=== PATIENT | male | born 1940 | race Hispanic/Latino ===

== ENCOUNTER 2017-08-24 11:07 | Emergency (ER) | payer OTHER ==
[~2017-08-24 11:07] MED LIST: ATOR10 PO; BACL10TA PO; FINA5TAB41 PO; GABA-531 PO; METF500T PO; PANT40TA PO; TAMS0.4C32 PO; VALS80TA29 PO
[2017-08-24] MEDS ORDERED: BENZONATATE 100 MG CAPSULE PO ONE (11:51)
[2017-08-24] MEDS ORDERED: IPRATROPIUM/ALBUTEROL SULFATE 3 ML SOLUTION IH ONE (11:56)
== END 2017-08-24 13:49 | disposition home or self-care (01) ==
LOC: EDH 11:07
DX: J20.9 Acute bronchitis, unspecified (principal); J45.909 Unspecified asthma, uncomplicated; E11.9 Type 2 diabetes mellitus without complications; I10 Essential (primary) hypertension
CPT/HCPCS: 71046; 87804; 94640

== ENCOUNTER 2020-07-18 17:02 | Inpatient (IN) | payer OTHER ==
[~2020-07-18] VITALS: Ht 172.7 cm; Wt 98.9 kg
[~2020-07-18 17:02] MED LIST changes: -VALS80TA29 PO; +VALS80TA30 PO
[2020-07-18 18:02] LABS: BASOPHILS % (AUTO) 0.2 % (0.0-5.0); EOSINOPHILS % (AUTO) 0.2 % (0.0-8.0); HEMATOCRIT 39.9 % (42-54); LYMPHOCYTES % (AUTO) 12.2 % (21.0-51.0); MEAN CORPUSCULAR HEMOGLOBIN 28.8 pg (27.0-33.0); MEAN CORPUSCULAR HGB CONC 33.1 g/dL (32.0-36.0); MEAN CORPUSCULAR VOLUME 87.1 fL (79-99); NEUTROPHILS % (AUTO) 72.1 % (40.0-77.0); PLATELET COUNT (AUTO) 162 K/uL (130-400); RED BLOOD CELL COUNT(AUTO) 4.58 MIL/uL (4.50-6.20); RED CELL DISTRIBUTION WIDTH 13.3 % (11.0-15.5); WHITE BLOOD COUNT (AUTO) 9.2 K/uL (4.8-10.8)
[2020-07-18 18:10] LABS: INR 1.02 (0.85-1.15); PROTHROMBIN TIME 10.9 SEC (9.6-11.6)
[2020-07-18 18:11] LABS: PARTIAL THROMBOPLASTIN TIME 24.8 SEC (26.3-35.5)
[2020-07-18 18:20] LABS: CARBON DIOXIDE 22 mmol/L (21-32); CHLORIDE 102 mmol/L (101-111); CREATININE 1.9 mg/dL (0.5-1.5); GLOMERULAR FILTR. RATE CALC 37 mL/min (>60); GLUCOSE,RANDOM 149 mg/dL (70-105); SODIUM SERUM 138 mmol/L (136-145); UREA NITROGEN, BLOOD 34 mg/dL (7-18)
[2020-07-18 18:33] LABS: ALANINE AMINOTRANSFERASE 54 U/L (12-78); ALBUMIN 2.7 g/dL (3.5-5.0); ASPARTATE AMINOTRANSFERASE 26 U/L (10-37); BILIRUBIN,TOTAL 0.7 mg/dL (0.2-1.0); CREATINE KINASE, TOTAL 19 U/L (21-232); LACTATE DEHYDROGENASE 152 U/L (81-234); MYOGLOBIN 43 ng/mL (10-92); TOTAL PROTEIN, SERUM 6.1 g/dL (6.0-8.3); TROPONIN I < 0.04 ng/mL (0.00-0.06)
[2020-07-18 19:34] LABS: ERYTHROCYTE SEDIMENTATION RATE 30 MM/HR (0-20)
[2020-07-18] MEDS ORDERED: IOHEXOL 350 MG/ML 100ML INFUS..BTL IV ONE (20:08)
[2020-07-18 20:52] LABS: APPEARANCE,URINE SL CLOUDY (CLEAR); BILIRUBIN,URINE NEGATIVE (NEGATIVE); COLOR,URINE YELLOW (YELLOW); GLUCOSE, URINE (UA) NEGATIVE (NEGATIVE); KETONES,URINE NEGATIVE (NEGATIVE); LEUKOCYTE ESTERASE ,URINE MODERATE (NEGATIVE); NITRATE,URINE POSITIVE (NEGATIVE); OCCULT BLOOD,URINE MODERATE (NEGATIVE); PH,URINE 5.5 (5.0-8.0); PROTEIN,URINE 30 mg/dL (NEGATIVE); UROBILINOGEN,URINE 0.2 mg/dL (0.2-1.0)
[2020-07-18 21:08] LABS: BACTERIA,URINE Moderate /HPF (None Seen); SQUAMOUS EPITHELIAL CELL,UR Few /HPF (0-2); WBC,URINE 26-50 /HPF (0-1)
[2020-07-19 08:48] VITALS: BP 148/68
[2020-07-19 12:06] VITALS: BP 159/71
[2020-07-19 12:06] LABS: HEMATOCRIT 38.5 % (42-54); MEAN CORPUSCULAR HEMOGLOBIN 28.5 pg (27.0-33.0); MEAN CORPUSCULAR HGB CONC 32.5 g/dL (32.0-36.0); MEAN CORPUSCULAR VOLUME 87.9 fL (79-99); RED BLOOD CELL COUNT(AUTO) 4.38 MIL/uL (4.50-6.20); RED CELL DISTRIBUTION WIDTH 13.3 % (11.0-15.5); WHITE BLOOD COUNT (AUTO) 8.6 K/uL (4.8-10.8)
[2020-07-19 12:17] LABS: CREATININE 1.8 mg/dL (0.5-1.5); MAGNESIUM 2.1 mg/dL (1.80-2.40); POTASSIUM 4.2 mmol/L (3.5-5.1)
[2020-07-19] MEDS ORDERED: SITA100T12 PO (12:29)
[2020-07-19] MEDS ORDERED: VALS160T29 PO (12:29)
[2020-07-19] MEDS ORDERED: FINA5TAB41 PO (12:29)
[2020-07-19] MEDS ORDERED: BENZ-51 PO (12:29)
[2020-07-19] MEDS ORDERED: ATOR10TA69 PO (12:29)
[2020-07-19] MEDS ORDERED: METO-408 PO (12:29)
[2020-07-19] MEDS ORDERED: TAMS-1 PO (12:29)
[2020-07-19] MEDS ORDERED: MELO-106 PO (12:29)
[2020-07-19 16:00] VITALS: BP 110/70
[2020-07-19] MEDS ORDERED: PERFLUTREN PROTEIN-A MICROSPHR 0.22 MG/ML VIAL IV ONE (16:04)
[2020-07-19 16:55] VITALS: BP 170/88
[2020-07-19 20:07] VITALS: BP 156/70
[2020-07-19] MEDS ORDERED: METF-446 PO (21:17)
[2020-07-19 23:45] VITALS: BP 173/59
[2020-07-20 04:01] VITALS: BP 169/59
[2020-07-20 05:28] LABS: HEMATOCRIT 41.6 % (42-54); MEAN CORPUSCULAR VOLUME 87.6 fL (79-99); RED BLOOD CELL COUNT(AUTO) 4.75 MIL/uL (4.50-6.20); RED CELL DISTRIBUTION WIDTH 13.2 % (11.0-15.5); WHITE BLOOD COUNT (AUTO) 9.5 K/uL (4.8-10.8)
[2020-07-20 05:32] LABS: HEMOGLOBIN A1C 8.2 % (4.0-6.0)
[2020-07-20 05:42] LABS: ALBUMIN 2.6 g/dL (3.5-5.0); BILIRUBIN,TOTAL 1.3 mg/dL (0.2-1.0); CREATININE 1.8 mg/dL (0.5-1.5); POTASSIUM 3.9 mmol/L (3.5-5.1); TOTAL PROTEIN, SERUM 6.2 g/dL (6.0-8.3)
[2020-07-20] MEDS: INSULIN HUMULIN R 100 UNIT/ML 3ML SQ SCH ×2 (07:05→15:43)
[2020-07-20 08:00] VITALS: BP 160/73
[2020-07-20] MEDS: CEFTRIAXONE SODIUM 1 GM IVP SCH (09:31)
[2020-07-20] MEDS ORDERED: MECLIZINE HCL 12.5 MG TABLET PO PRN (09:45)
[2020-07-20 11:00] VITALS: BP 146/75
[2020-07-20 15:23] VITALS: BP 182/83
[2020-07-20 19:59] VITALS: BP 165/78
[2020-07-20] MEDS: TAMSULOSIN HCL 0.4 MG CAP.ER.24H PO SCH (20:46)
[2020-07-20 23:15] VITALS: BP 159/77
[2020-07-21 03:47] VITALS: BP 168/59
[2020-07-21 04:18] LABS: HEMATOCRIT 37.9 % (42-54); MEAN CORPUSCULAR HEMOGLOBIN 28.5 pg (27.0-33.0); MEAN CORPUSCULAR VOLUME 86.5 fL (79-99); RED BLOOD CELL COUNT(AUTO) 4.38 MIL/uL (4.50-6.20); RED CELL DISTRIBUTION WIDTH 12.9 % (11.0-15.5); WHITE BLOOD COUNT (AUTO) 8.2 K/uL (4.8-10.8)
[2020-07-21 04:44] LABS: ALBUMIN 2.3 g/dL (3.5-5.0); BILIRUBIN,TOTAL 0.9 mg/dL (0.2-1.0); CREATININE 1.8 mg/dL (0.5-1.5); POTASSIUM 3.6 mmol/L (3.5-5.1)
[2020-07-21] MEDS: CEFTRIAXONE SODIUM 1 GM IVP SCH ×2 (08:00→08:32)
[2020-07-21] MEDS: INSULIN HUMULIN R 100 UNIT/ML 3ML SQ SCH (08:00)
[2020-07-21 08:05] VITALS: BP 160/59
[2020-07-21] MEDS: TAMSULOSIN HCL 0.4 MG CAP.ER.24H PO SCH (08:32)
[2020-07-21] MEDS ORDERED: FINASTERIDE 5 MG TABLET PO SCH (09:00)
[2020-07-21] MEDS ORDERED: LOSARTAN 100 MG TABLET PO SCH (09:00)
[2020-07-21] MEDS ORDERED: SODIUM CHLORIDE 0.9% 1000ML 1,000 ML IV SCH (09:00)
[2020-07-21] MEDS ORDERED: METOPROLOL SUCCINATE 50 MG TAB.SR.24H PO SCH (09:00)
[2020-07-21] MEDS ORDERED: ATORVASTATIN CALCIUM 10 MG TABLET PO SCH (09:00)
== END 2020-07-21 15:55 | disposition home or self-care (01) | DRG 683 ==
LOC: EDH 17:02 → EDHIP 23:15 → 4BH 07-19 08:20
PROVIDERS: ADMIT Internal Medicine; ATTEND Internal Medicine
DX: N17.9 Acute kidney failure, unspecified (principal); N39.0 Urinary tract infection, site not specified; H81.399 Other peripheral vertigo, unspecified ear; E86.0 Dehydration; M48.061 Spinal stenosis, lumbar region without neurogenic claudication; E11.9 Type 2 diabetes mellitus without complications; I10 Essential (primary) hypertension; G89.29 Other chronic pain; M54.5 Low back pain; R26.2 Difficulty in walking, not elsewhere classified; Z20.828 Contact with and (suspected) exposure to other viral communicable diseases; Z87.828 Personal history of other (healed) physical injury and trauma
CPT/HCPCS: 36415; 70450; 70551; 71045; 72131; 72148; 74174; 80048; 80053; 80061; 81001; 82550; 82728; 82948; 83036; 83605; 83615; 83735; 83874; 84145; 84484; 85025; 85027; 85378; 85610; 85651; 85730; 86140; 86900; 86901; 87040; 87077; 87088; 87186; 87426; 87804; 92522; 92610; 93005; 93356; 93880; 97039; C8929; G0378; J0696; Q9967; U0003

== ENCOUNTER 2021-09-04 12:49 | Observation (INO) | payer OTHER ==
[~2021-09-04] VITALS: Ht 172.7 cm; Wt 94.3 kg
[~2021-09-04 12:49] MED LIST changes: -ATOR10 PO; +ATOR10TA69 PO; -BACL10TA PO; +BENZ-70 PO; -GABA-531 PO; +MELO-106 PO; +METF-446 PO; -METF500T PO; +METO-408 PO; -PANT40TA PO; +SITA100T12 PO; +TAMS-1 PO; -TAMS0.4C32 PO; +VALS160T29 PO; -VALS80TA30 PO
[2021-09-04] MEDS ORDERED: LACTULOSE 20 GM/30 ML UDCUP PO PRN (13:30)
[2021-09-04] MEDS ORDERED: ONDANSETRON 4MG INJ IVP PRN (13:30)
[2021-09-04] MEDS ORDERED: ZOLPIDEM TARTRATE 5 MG TAB PO PRN (13:30)
[2021-09-04] MEDS ORDERED: MORPHINE 4 MG SYG IVP PRN (13:30)
[2021-09-04 14:04] LABS: BASOPHILS % (AUTO) 0.6 % (0.0-5.0); EOSINOPHILS % (AUTO) 1.9 % (0.0-8.0); LYMPHOCYTES % (AUTO) 23.6 % (21.0-51.0); MEAN CORPUSCULAR HEMOGLOBIN 28.6 pg (27.0-33.0); MEAN CORPUSCULAR HGB CONC 31.6 g/dL (32.0-36.0); MEAN CORPUSCULAR VOLUME 90.5 fL (79-99); MONOCYTES % (AUTO) 10.4 % (3.0-13.0); NEUTROPHILS % (AUTO) 63.1 % (40.0-77.0); PLATELET COUNT (AUTO) 209 K/uL (130-400); RED BLOOD CELL COUNT(AUTO) 4.75 MIL/uL (4.50-6.20); RED CELL DISTRIBUTION WIDTH 12.5 % (11.0-15.5); WHITE BLOOD COUNT (AUTO) 8.4 K/uL (4.8-10.8)
[2021-09-04 14:18] LABS: CREATININE 1.5 mg/dL (0.5-1.5); POTASSIUM 4.4 mmol/L (3.5-5.1)
[2021-09-04 14:33] LABS: ALBUMIN 3.9 g/dL (3.5-5.0); BILIRUBIN,DIRECT 0.1 mg/dL (0.0-0.3); BILIRUBIN,TOTAL 0.6 mg/dL (0.2-1.0); TOTAL PROTEIN, SERUM 6.7 g/dL (6.0-8.3)
[2021-09-04] MEDS ORDERED: IOHEXOL-350 75 ML VIAL IV ONE (15:40)
[2021-09-04 20:22] VITALS: BP 126/60
[2021-09-04] MEDS: MAG/ALUM/SIMETH 30 ML UDCUP PO PRN (21:33)
[2021-09-05 00:20] VITALS: BP 156/61
[2021-09-05] MEDS ORDERED: VALS160T29 PO (00:21)
[2021-09-05] MEDS ORDERED: FINA5TAB41 PO (00:21)
[2021-09-05] MEDS ORDERED: DULA0.75 SQ (00:21)
[2021-09-05] MEDS ORDERED: SITA100T12 PO (00:21)
[2021-09-05] MEDS ORDERED: PANT40TA55 PO (00:21)
[2021-09-05] MEDS ORDERED: MONT10TA21 PO (00:21)
[2021-09-05] MEDS ORDERED: FLUT1BLS3 IH (00:21)
[2021-09-05] MEDS ORDERED: BACL10TA PO (00:21)
[2021-09-05] MEDS ORDERED: METR-172 PO (00:21)
[2021-09-05] MEDS ORDERED: METF-446 PO (00:21)
[2021-09-05] MEDS ORDERED: IPRA3AMP24 IH (00:21)
[2021-09-05] MEDS ORDERED: ATOR10TA69 PO (00:21)
[2021-09-05] MEDS ORDERED: MUPI22O TP (00:21)
[2021-09-05] MEDS ORDERED: TAMS-1 PO (00:21)
[2021-09-05] MEDS ORDERED: DICL20GE TP (00:21)
[2021-09-05] MEDS ORDERED: IPRATROPIUM/ALBUTEROL SULFATE 3 ML SOLUTION IH PRN (01:00)
[2021-09-05 04:24] VITALS: BP 157/73
[2021-09-05 06:35] LABS: BASOPHILS % (AUTO) 0.9 % (0.0-5.0); HEMATOCRIT 37.5 % (42-54); MEAN CORPUSCULAR HEMOGLOBIN 28.9 pg (27.0-33.0); MEAN CORPUSCULAR HGB CONC 31.7 g/dL (32.0-36.0); MONOCYTES % (AUTO) 12.6 % (3.0-13.0); NEUTROPHILS % (AUTO) 56.2 % (40.0-77.0); PLATELET COUNT (AUTO) 167 K/uL (130-400); RED BLOOD CELL COUNT(AUTO) 4.12 MIL/uL (4.50-6.20); RED CELL DISTRIBUTION WIDTH 12.6 % (11.0-15.5)
[2021-09-05 06:46] LABS: ALBUMIN 3.3 g/dL (3.5-5.0); BILIRUBIN,DIRECT 0.2 mg/dL (0.0-0.3); BILIRUBIN,TOTAL 0.7 mg/dL (0.2-1.0); CREATININE 1.5 mg/dL (0.5-1.5); POTASSIUM 3.6 mmol/L (3.5-5.1); TOTAL PROTEIN, SERUM 5.8 g/dL (6.0-8.3)
[2021-09-05 07:30] VITALS: BP 165/57
[2021-09-05] MEDS: **HM**TRELEGY ELLIPTA IH SCH (09:00)
[2021-09-05] MEDS ORDERED: **HM** TRULICITY 0.75MG SQ SCH (09:00)
[2021-09-05] MEDS: ENOXAPARIN SODIUM 40 MG/0.4 ML SYRINGE SQ SCH (09:32)
[2021-09-05] MEDS: TROLAMINE SALICYLATE CREAM 85 GM TUBE TP SCH ×2 (09:33→21:18)
[2021-09-05] MEDS: FINASTERIDE 5 MG TABLET PO SCH (09:33)
[2021-09-05] MEDS: MONTELUKAST SODIUM 10 MG TAB PO SCH (09:33)
[2021-09-05] MEDS: LINAGLIPTIN 5 MG TABLET PO SCH (09:33)
[2021-09-05] MEDS: LOSARTAN 100 MG TABLET PO SCH (09:33)
[2021-09-05] MEDS: TAMSULOSIN HCL 0.4 MG CAP.ER.24H PO SCH ×2 (09:33→21:18)
[2021-09-05] MEDS: PANTOPRAZOLE 40 MG/VIAL IVP SCH (09:47)
[2021-09-05] MEDS ORDERED: GADOTERATE MEGLUMINE 10 MMOL/20 ML VIAL IV ONE (10:28)
[2021-09-05 11:00] VITALS: BP 173/73
[2021-09-05 16:00] VITALS: BP 132/57
[2021-09-05 20:12] VITALS: BP 144/70
[2021-09-05] MEDS ORDERED: BACLOFEN 10 MG TABLET PO SCH (21:00)
[2021-09-05] MEDS ORDERED: ATORVASTATIN 10 MG TABLET PO SCH (21:00)
[2021-09-05] MEDS: MAG/ALUM/SIMETH 30 ML UDCUP PO PRN (21:20)
[2021-09-06] VITALS (25 sets, daily range): BP systolic 132–188; BP diastolic 61–93
[2021-09-06 07:45] LABS: BASOPHILS % (AUTO) 0.5 % (0.0-5.0); EOSINOPHILS % (AUTO) 2.6 % (0.0-8.0); HEMATOCRIT 41.2 % (42-54); LYMPHOCYTES % (AUTO) 27.2 % (21.0-51.0); MEAN CORPUSCULAR HEMOGLOBIN 28.4 pg (27.0-33.0); MEAN CORPUSCULAR HGB CONC 31.1 g/dL (32.0-36.0); MEAN CORPUSCULAR VOLUME 91.6 fL (79-99); MONOCYTES % (AUTO) 11.4 % (3.0-13.0); PLATELET COUNT (AUTO) 170 K/uL (130-400); RED CELL DISTRIBUTION WIDTH 12.4 % (11.0-15.5); WHITE BLOOD COUNT (AUTO) 7.7 K/uL (4.8-10.8)
[2021-09-06 07:59] LABS: ALBUMIN 3.5 g/dL (3.5-5.0); BILIRUBIN,TOTAL 0.8 mg/dL (0.2-1.0); CREATININE 1.4 mg/dL (0.5-1.5); POTASSIUM 3.9 mmol/L (3.5-5.1); TOTAL PROTEIN, SERUM 6.4 g/dL (6.0-8.3)
[2021-09-06] MEDS: MONTELUKAST SODIUM 10 MG TAB PO SCH (09:00)
[2021-09-06] MEDS: LOSARTAN 100 MG TABLET PO SCH ×2 (09:00→16:47)
[2021-09-06] MEDS: **HM**TRELEGY ELLIPTA IH SCH (09:00)
[2021-09-06] MEDS: LINAGLIPTIN 5 MG TABLET PO SCH (09:00)
[2021-09-06] MEDS: ENOXAPARIN SODIUM 40 MG/0.4 ML SYRINGE SQ SCH (09:00)
[2021-09-06] MEDS: FINASTERIDE 5 MG TABLET PO SCH (09:00)
[2021-09-06] MEDS: TAMSULOSIN HCL 0.4 MG CAP.ER.24H PO SCH (09:00)
[2021-09-06] MEDS: PANTOPRAZOLE 40 MG/VIAL IVP SCH (09:00)
[2021-09-06] MEDS: TROLAMINE SALICYLATE CREAM 85 GM TUBE TP SCH (09:00)
[2021-09-06] MEDS ORDERED: LIDOCAINE HCL 400MG/20ML VIAL ONE (12:58)
[2021-09-06] MEDS ORDERED: PROPOFOL 10 MG/ML 20ML VIAL IV ONE (12:58)
== END 2021-09-06 20:25 | disposition home or self-care (01) ==
LOC: EDH 12:49 → 3DH 20:20
PROVIDERS: ADMIT Internal Medicine; ATTEND Internal Medicine
DX: K29.70 Gastritis, unspecified, without bleeding (principal); R10.84 Generalized abdominal pain; R10.13 Epigastric pain; R11.2 Nausea with vomiting, unspecified; E78.5 Hyperlipidemia, unspecified; K21.9 Gastro-esophageal reflux disease without esophagitis; J44.9 Chronic obstructive pulmonary disease, unspecified; E66.01 Morbid (severe) obesity due to excess calories; I12.9 Hypertensive chronic kidney disease with stage 1 through stage 4 chronic kidney disease, or unspecified chronic kidney disease; E11.22 Type 2 diabetes mellitus with diabetic chronic kidney disease; N18.9 Chronic kidney disease, unspecified; D18.03 Hemangioma of intra-abdominal structures; K76.9 Liver disease, unspecified
CPT/HCPCS: 36415 ×3; 43239; 74177; 74183; 80048; 80053 ×2; 80061; 80076 ×2; 82948 ×7; 83690; 85025 ×3; 94664; A4215; A4222; A4223; A4606; A4620; A9575; C9113; G0378 ×48; J1650 ×2; J2270; J2405; J2704; J3490; J7030; Q9967; 96372; 96374; 96375

== ENCOUNTER 2021-10-04 11:03 | Observation (INO) | payer OTHER ==
[~2021-10-04] VITALS: Ht 172.7 cm; Wt 94.4 kg
[~2021-10-04 11:03] MED LIST changes: +BACL10TA PO; -BENZ-70 PO; +DICL20GE TP; +DULA0.75 SQ; +FLUT1BLS3 IH; +IPRA3AMP24 IH; -MELO-106 PO; -METF-446 PO; -METO-408 PO; +MONT10TA21 PO
[2021-10-04] MEDS ORDERED: PANTOPRAZOLE 40 MG/VIAL IVP ONE (12:00)
[2021-10-04] MEDS ORDERED: PANTOPRAZOLE 40 MG/VIAL ONE (12:02)
[2021-10-04 12:08] LABS: BASOPHILS % (AUTO) 0.3 % (0.0-5.0); HEMATOCRIT 36.8 % (42-54); LYMPHOCYTES % (AUTO) 17.8 % (21.0-51.0); MEAN CORPUSCULAR HEMOGLOBIN 28.9 pg (27.0-33.0); MEAN CORPUSCULAR HGB CONC 32.1 g/dL (32.0-36.0); NEUTROPHILS % (AUTO) 71.6 % (40.0-77.0); PLATELET COUNT (AUTO) 152 K/uL (130-400); RED BLOOD CELL COUNT(AUTO) 4.09 MIL/uL (4.50-6.20); RED CELL DISTRIBUTION WIDTH 12.4 % (11.0-15.5); WHITE BLOOD COUNT (AUTO) 7.6 K/uL (4.8-10.8)
[2021-10-04 12:16] LABS: CREATININE 1.6 mg/dL (0.5-1.5)
[2021-10-04 12:24] LABS: ALBUMIN 3.3 g/dL (3.5-5.0); BILIRUBIN,TOTAL 0.5 mg/dL (0.2-1.0); TOTAL PROTEIN, SERUM 5.6 g/dL (6.0-8.3)
[2021-10-04] MEDS ORDERED: MAG/ALUM/SIMETH 30 ML UDCUP PO ONE (13:00)
[2021-10-04] MEDS ORDERED: DICYCLOMINE HCL 10 MG/5 ML ML PO ONE (13:00)
[2021-10-04] MEDS ORDERED: LIDOCAINE HCL 2% VISCOUS 15 ML UDCUP PO ONE (13:00)
[2021-10-04 13:48] LABS: APPEARANCE,URINE SL CLOUDY (CLEAR); BILIRUBIN,URINE NEGATIVE (NEGATIVE); COLOR,URINE YELLOW (YELLOW); GLUCOSE, URINE (UA) NEGATIVE (NEGATIVE); KETONES,URINE NEGATIVE (NEGATIVE); LEUKOCYTE ESTERASE ,URINE SMALL (NEGATIVE); NITRATE,URINE NEGATIVE (NEGATIVE); OCCULT BLOOD,URINE NEGATIVE (NEGATIVE); PH,URINE 6.5 (5.0-8.0); PROTEIN,URINE NEGATIVE (NEGATIVE); UROBILINOGEN,URINE 0.2 mg/dL (0.2-1.0)
[2021-10-04] MEDS ORDERED: NITROGLYCERIN 1GM OINT 1 INCH/1GM TD ONE (14:22)
[2021-10-04] MEDS ORDERED: NITROGLYCERIN PATCH 0.2 MG/HR TD SCH (14:30)
[2021-10-04 14:32] LABS: BACTERIA,URINE Moderate /HPF (None Seen); RBC,URINE 0-1 /HPF (0-1); SQUAMOUS EPITHELIAL CELL,UR Rare /HPF (0-2)
[2021-10-04] MEDS ORDERED: CLOPIDOGREL 75MG TAB PO ONE (16:00)
[2021-10-04] MEDS ORDERED: ASPIRIN 81 MG EC TAB PO SCH (16:32)
[2021-10-04] MEDS ORDERED: ENOXAPARIN SODIUM 100 MG/1 ML SQ ONE (17:00)
[2021-10-04] MEDS ORDERED: CLOPIDOGREL 75MG TAB ONE (17:14)
[2021-10-04] MEDS ORDERED: AMOX500C2 PO (18:32)
[2021-10-04] MEDS ORDERED: ONDA-105 PO (18:40)
[2021-10-04] MEDS ORDERED: METO-408 PO (18:40)
[2021-10-04] MEDS ORDERED: METF-446 PO (18:40)
[2021-10-04] MEDS ORDERED: ZOLP10TA2 PO (18:40)
[2021-10-04] MEDS ORDERED: ENOXAPARIN SODIUM 1 MG/KG SQ SCH (21:00)
[2021-10-05 01:00] VITALS: BP 157/57
[2021-10-05 04:00] VITALS: BP 117/57
[2021-10-05 05:51] LABS: BASOPHILS % (AUTO) 0.5 % (0.0-5.0); EOSINOPHILS % (AUTO) 2.8 % (0.0-8.0); HEMATOCRIT 37.6 % (42-54); LYMPHOCYTES % (AUTO) 24.5 % (21.0-51.0); MEAN CORPUSCULAR HEMOGLOBIN 28.9 pg (27.0-33.0); MEAN CORPUSCULAR HGB CONC 31.9 g/dL (32.0-36.0); MEAN CORPUSCULAR VOLUME 90.6 fL (79-99); MONOCYTES % (AUTO) 8.9 % (3.0-13.0); NEUTROPHILS % (AUTO) 63.2 % (40.0-77.0); PLATELET COUNT (AUTO) 144 K/uL (130-400); RED BLOOD CELL COUNT(AUTO) 4.15 MIL/uL (4.50-6.20); RED CELL DISTRIBUTION WIDTH 12.7 % (11.0-15.5); WHITE BLOOD COUNT (AUTO) 7.8 K/uL (4.8-10.8)
[2021-10-05 06:15] LABS: ALBUMIN 3.3 g/dL (3.5-5.0); BILIRUBIN,TOTAL 0.6 mg/dL (0.2-1.0); CREATININE 1.6 mg/dL (0.5-1.5); TOTAL PROTEIN, SERUM 5.9 g/dL (6.0-8.3)
[2021-10-05 08:11] VITALS: BP 152/62
[2021-10-05] MEDS ORDERED: REGADENOSON 0.4 MG/5 ML PF SYG IVP SCH (08:30)
[2021-10-05] MEDS ORDERED: CLOPIDOGREL 75MG TAB PO SCH (09:00)
[2021-10-05] MEDS ORDERED: ASPIRIN 81 MG EC TAB PO SCH (09:00)
[2021-10-05] MEDS ORDERED: ENOXAPARIN SODIUM 100 MG/1 ML SQ SCH (09:00)
[2021-10-05 11:00] VITALS: BP 132/63
[2021-10-05 15:40] VITALS: BP 140/76
== END 2021-10-05 17:10 | disposition home or self-care (01) ==
LOC: EDH 11:03 → EDHIP 15:54 → 3CH 10-05 00:16
PROVIDERS: ADMIT Internal Medicine; ATTEND Internal Medicine
DX: R07.89 Other chest pain (principal); I10 Essential (primary) hypertension; E11.9 Type 2 diabetes mellitus without complications; E78.00 Pure hypercholesterolemia, unspecified; Z96.653 Presence of artificial knee joint, bilateral; Z79.82 Long term (current) use of aspirin; Z79.899 Other long term (current) drug therapy; Z98.890 Other specified postprocedural states
CPT/HCPCS: 36415 ×2; 71045; 78452; 80053 ×2; 81001; 82550 ×3; 83874 ×3; 84484 ×5; 85025 ×2; 87077; 87088; 87186; 93005; 93017; 96372; 96374; 99291; A9500 ×2; C9113; G0378 ×25; J1650; J2785

== ENCOUNTER → 2021-10-10 | Outpatient (CLI) | payer OTHER ==
[~2021-10-10] MED LIST changes: +AMOX500C2 PO; +METF-446 PO; +METO-408 PO; +ONDA-105 PO; +ZOLP10TA2 PO
== END | disposition home or self-care (01) ==
LOC: RAH 08:55
PROVIDERS: ATTEND Internal Medicine
DX: R12 Heartburn (principal); R07.9 Chest pain, unspecified
CPT/HCPCS: 74240

== ENCOUNTER → 2023-12-06 | Outpatient (CLI) | payer OTHER ==
[~2023-12-06] MED LIST changes: +ACET-66 PO; -AMOX500C2 PO; -BACL10TA PO; -DICL20GE TP; -DULA0.75 SQ; -IPRA3AMP24 IH; -MONT10TA21 PO; -ONDA-105 PO; -VALS160T29 PO; +VALS320T16 PO; -ZOLP10TA2 PO
== END | disposition home or self-care (01) ==
LOC: RAH 13:17
PROVIDERS: ATTEND Internal Medicine
DX: I35.0 Nonrheumatic aortic (valve) stenosis (principal); R94.31 Abnormal electrocardiogram [ECG] [EKG]; I31.39 Other pericardial effusion (noninflammatory)
CPT/HCPCS: 93306